=== PATIENT | male | born 1945 | race Caucasian/White ===

== ENCOUNTER 2022-10-20 15:20 | Inpatient (IN) | payer MEDICARE, BC ==
[~2022-10-20] VITALS: Ht 188 cm; Wt 120.4 kg
[~2022-10-20 15:20] MED LIST: ASPI325T6 PO; ASPIRIN E.C. 8181 MG PO; BRILINTA90 MG PO; GLUCOPHAGE500 MG/TAB PO; LIPITOR 40MG TA40 MG PO; LYRICA 100MG C100 M1 PO; NOVOLIN N100 U/ML SQ; NOVOLIN R100 U/ML SQ; PLAVIX 75MG TAB75 MG PO; PRILOSEC 20MG20 MG PO; PRINIVIL10 MG PO; TOPROL XL100 MG PO; ZOCOR 40MG40 MG PO
[2022-10-20 15:44] LABS: BASO % 0.4 % (0.0-2.0); EOS % 0.1 % (0.0-4.0); GRAN # 6.7 K/mm3 (1.4-6.5); GRAN % 69.3 % (42.2-75.2); HEMATOCRIT 43.9 % (42.0-52.0); HEMOGLOBIN 13.8 g/dl (13.5-18.0); LYMPH # 2.1 K/mm3 (1.2-3.4); LYMPH % 22.1 % (20.0-51.0); MEAN CELL VOLUME 89 fl (80.0-100.0); MEAN CORPUSCULAR HEMOGLOBIN 28 pg (27-31); MEAN CORPUSCULAR HGB CONC 31 g/dl (33.0-37.0); MEAN PLATELET VOLUME 10.1 fl (7.4-10.4); MONO # 0.8 K/mm3 (0.1-0.6); MONO % 7.7 % (1.7-9.3); PLATELET COUNT 252 K/mm3 (130-400); RED BLOOD COUNT 4.91 M/mm3 (4.20-5.60)
[2022-10-20 16:00] LABS: ALBUMIN 3.5 gm/dL (3.4-4.8); BILIRUBIN,TOTAL 0.9 mg/dL (0.2-1.2); CALCIUM 9.5 mg/dL (8.4-10.2); CREATININE, serum 0.87 mg/dL (0.72-1.25); POTASSIUM 4.3 mmol/L (3.5-4.5); TOTAL PROTEIN 7.8 gm/dL (6.2-8.1)
[2022-10-20 16:19] LABS: TROPONIN-I 0.013 ng/mL (0.00-0.033); TSH w REFLEX 1.018 uIU/mL (0.350-4.940)
[2022-10-20 16:25] LABS: INR 1.1 (0.8-3.0); PROTHROMBIN TIME 12.1 SECONDS (9.7-12.8)
[2022-10-20 16:28] LABS: PARTIAL THROMBOPLASTIN TIME 36.4 SECONDS (26.0-37.0)
[2022-10-20 16:30] VITALS: BP 113/71; PULSE 101
[2022-10-20 17:00] VITALS: BP 125/78; PULSE 100
[2022-10-20] MEDS ORDERED: BREZTRI AEROS10.7 GM IH (17:45)
[2022-10-20] MEDS ORDERED: PAMELOR75 MG PO (17:46)
[2022-10-20] MEDS ORDERED: MOBIC15 MG PO (17:46)
[2022-10-20] MEDS ORDERED: PROSCAR 5MG5 MG PO (17:47)
[2022-10-20] MEDS ORDERED: PROTONIX 40MG T40 MG PO (17:47)
[2022-10-20] MEDS ORDERED: SINGULAIR 110 MG/TAB PO (17:48)
[2022-10-20] MEDS ORDERED: NEURONTIN300 MG/CAP PO (17:48)
[2022-10-20] MEDS ORDERED: REGLAN 5MG T5 MG/TAB PO (17:49)
[2022-10-20] MEDS ORDERED: FLOMAX 0.40.4 MG/CAP PO (18:00)
[2022-10-20 18:36] LABS: COLLECTION METHOD CLEAN CATCH
[2022-10-20 19:04] LABS: SQUAMOUS EPITHELIAL None Seen /hpf (0-10); URINE BACTERIA None Seen /hpf (NONE SEEN); URINE RBC 0-2 /hpf (0-2)
[2022-10-20 19:12] LABS: URINE APPEARANCE Clear (CLEAR/HAZY); URINE BLOOD Negative (NEGATIVE); URINE COLOR Yellow (YELLOW); URINE GLUCOSE Negative (NEGATIVE); URINE KETONE Negative (NEGATIVE); URINE NITRATE Negative (NEGATIVE); URINE PROTEIN(semi-quant) Negative (NEGATIVE)
[2022-10-20 19:31] VITALS: BP 114/63; BP 133/72; PULSE 59; PULSE 98; TEMP 98.4; TEMP 99.5
[2022-10-20 20:30] VITALS: BP_SYST 127
[2022-10-20 22:27] VITALS: BP 127/68; PULSE 97; TEMP 98.6
--- NOTE | 2022-10-20 23:49 | NUR ---
Admission assessment completed. at the bedside. Pt and family were oriented to the room. Pt is alert and oriented x4. He is unstable on his feet and used a cane to ambulate. Fall precautions initiated. Upon arrival, pt had heparin running at 21.5 ml/hr in the right wrist IV. Cardizem was running in the L hand IV at 10 ml/hr. This was adjusted to 5 ml/hr as ordered. The Hep Xa was rechecked at 2225. Lab called back with the results of 1.19. Per protocol, the heparin was put on hold for two hours and the PTT and Hep Xa will be rechecked at 0110. Pt denies any chest pain or SOB at this time. Will cont to monitor.
[2022-10-21] VITALS (10 sets, daily range): BP systolic 105–158; BP diastolic 53–75; PULSE 96–112; TEMP 98.1–98.7
[2022-10-21 01:58] LABS: PARTIAL THROMBOPLASTIN TIME 97.4 SECONDS (26.0-37.0)
--- NOTE | 2022-10-21 06:38 | NUR ---
Heparin gtt was adjusted at 0250 to 18.5 ml/hr due to Hep Xa recheck results of 0.56.
[2022-10-21 06:57] LABS: BASO # 0.1 K/mm3 (0.0-0.2); BASO % 0.5 % (0.0-2.0); EOS # 0.2 K/mm3 (0.0-0.7); EOS % 1.7 % (0.0-4.0); GRAN # 6.1 K/mm3 (1.4-6.5); GRAN % 61.7 % (42.2-75.2); HEMATOCRIT 41.3 % (42.0-52.0); HEMOGLOBIN 12.8 g/dl (13.5-18.0); LYMPH # 2.8 K/mm3 (1.2-3.4); LYMPH % 28.7 % (20.0-51.0); MEAN CELL VOLUME 91 fl (80.0-100.0); MEAN CORPUSCULAR HEMOGLOBIN 28 pg (27-31); MEAN CORPUSCULAR HGB CONC 31 g/dl (33.0-37.0); MEAN PLATELET VOLUME 10.6 fl (7.4-10.4); MONO # 0.7 K/mm3 (0.1-0.6); MONO % 6.9 % (1.7-9.3); PLATELET COUNT 237 K/mm3 (130-400); RED BLOOD COUNT 4.55 M/mm3 (4.20-5.60); REDCELL DISTRIBUTION WIDTH-CV 15.1 % (11.5-14.5)
[2022-10-21 07:14] LABS: CALCIUM 9.1 mg/dL (8.4-10.2); CREATININE, serum 0.73 mg/dL (0.72-1.25); MAGNESIUM 1.7 mg/dL (1.6-2.6); POTASSIUM 3.9 mmol/L (3.5-4.5)
--- NOTE | 2022-10-21 11:13 | NUR ---
SW met with patient to complete intake. Patient states he lives in [facility]. with Meagan Lazaro [phone]. Patient states he does utilize a walker and a cane for mobility, independent with ADL's and does not utilize home health services at this time. PCP is Dr. Manjarrez of [facility], and [facility] for pharmacy needs. DPOA of HC is spouse. Patient plans to return to his home upon DC. SW will continue to follow. DC plan: home
[2022-10-22] VITALS (13 sets, daily range): BP systolic 119–158; BP diastolic 57–93; PULSE 82–121; TEMP 97.9–98.7
--- NOTE | 2022-10-22 03:12 | NUR ---
Shift assessment completed. Pt currently has heparin running at 17 ml/hr and cardizem running at 5 ml/hr. He continues to be in a-fib. He denies any SOB or chest pain. Most recent Hep Xa at 2340 was in therapeutic range. Next recheck at 0540. Pt is comfortable and denies other needs at this time. Call light left within reach and fall precautions in place.
[2022-10-22 06:45] LABS: BASO # 0.1 K/mm3 (0.0-0.2); BASO % 0.7 % (0.0-2.0); EOS # 0.6 K/mm3 (0.0-0.7); EOS % 6.3 % (0.0-4.0); GRAN # 5.7 K/mm3 (1.4-6.5); GRAN % 62.9 % (42.2-75.2); HEMATOCRIT 41.4 % (42.0-52.0); HEMOGLOBIN 13.1 g/dl (13.5-18.0); LYMPH # 1.9 K/mm3 (1.2-3.4); LYMPH % 21.1 % (20.0-51.0); MEAN CELL VOLUME 90 fl (80.0-100.0); MEAN CORPUSCULAR HEMOGLOBIN 29 pg (27-31); MEAN CORPUSCULAR HGB CONC 32 g/dl (33.0-37.0); MEAN PLATELET VOLUME 10.5 fl (7.4-10.4); MONO # 0.8 K/mm3 (0.1-0.6); MONO % 8.4 % (1.7-9.3); PLATELET COUNT 220 K/mm3 (130-400); REDCELL DISTRIBUTION WIDTH-CV 15.3 % (11.5-14.5)
[2022-10-22 07:02] LABS: CALCIUM 9.1 mg/dL (8.4-10.2); CREATININE, serum 0.81 mg/dL (0.72-1.25); POTASSIUM 4.2 mmol/L (3.5-4.5)
--- NOTE | 2022-10-22 23:50 | NUR ---
ASSESSMENT COMPLETE FOR DESIGN CHIEF. PT HAS HAD A PRETTY UNEVENTFUL NIGHT THUS FAR. PT DENIED GENERAL PAIN, CHEST PAIN, PALPITATIONS, SOB, N,V,D OR DIZZINESS. FALL PRECAUTIONS IN PLACE. BED ALARM ON. CALL LIGHT WITHIN REACH.
[2022-10-23] VITALS (16 sets, daily range): BP systolic 109–159; BP diastolic 53–85; PULSE 85–125; TEMP 97.9–98.6
--- NOTE | 2022-10-23 06:35 | NUR ---
NIGHTSHIFT: THIS MORNING, PT CALLED OUT STATING HIS BLOOD GLUCOSE WAS OVER 3OO. I CHECKED PT'S BLOOD GLUCOSE WITH THE HOSPITAL'S MONITOR AND HIS BLOOD GLUCOSE WAS 296. 8 UNITS OF NOVOLOG GIVEN. INFORMATION PASSED ON TO DAYSHIFT RNS WITH RECOMMENDATIONS TO SEE IF PT'S INSULIN CAN BE INCREASED AND HIS GLUCOSE MONITORING CHANGED TO Q4HRS. CALL LIGHT WITHIN REACH.
[2022-10-23 08:00] LABS: BASO % 0.5 % (0.0-2.0); EOS % 0.1 % (0.0-4.0); GRAN # 6.1 K/mm3 (1.4-6.5); HEMATOCRIT 42.9 % (42.0-52.0); HEMOGLOBIN 13.5 g/dl (13.5-18.0); LYMPH # 1.4 K/mm3 (1.2-3.4); LYMPH % 17.4 % (20.0-51.0); MEAN CELL VOLUME 89 fl (80.0-100.0); MEAN CORPUSCULAR HEMOGLOBIN 28 pg (27-31); MEAN CORPUSCULAR HGB CONC 32 g/dl (33.0-37.0); MEAN PLATELET VOLUME 10.2 fl (7.4-10.4); MONO # 0.6 K/mm3 (0.1-0.6); MONO % 7.6 % (1.7-9.3); PLATELET COUNT 225 K/mm3 (130-400); RED BLOOD COUNT 4.83 M/mm3 (4.20-5.60); REDCELL DISTRIBUTION WIDTH-CV 14.9 % (11.5-14.5)
--- NOTE | 2022-10-23 08:06 | NUR ---
UPON ENTERING ROOM PATIENT WAS SITTING DOWN ON BED LOOKING AT THE WINDOW.PATIENT ALERT X4. PATIENT WAS PLEASANT AND REMAINS NPO AT THIS TIME. BED AT LOWEST POSITION AND CALL LIGHT WITHIN REACH.
[2022-10-23 08:12] LABS: CALCIUM 9.2 mg/dL (8.4-10.2); CREATININE, serum 0.86 mg/dL (0.72-1.25)
[2022-10-23 10:12] LABS: INR 1.2 (0.8-3.0); PROTHROMBIN TIME 13.3 SECONDS (9.7-12.8)
[2022-10-23] MEDS ORDERED: PEPCID 20MG TAB20 MG PO (12:33)
[2022-10-23] MEDS ORDERED: LOPRESSOR100 MG PO (12:40)
--- NOTE | 2022-10-23 20:40 | NUR ---
PACO ALVARADO, ASA, AND ELIQUIS ORDERED, PATIENT OOZING FROM LOOP RECORDER SITE, PRESSURE DRESSING APPLIED BY DAYSHIFT, NO NEW BLEEDING. ORDER TO HOLD ASA RECEIVED
[2022-10-23 23:44] LABS: ARTERIAL BLD GAS O2 SATURATION 96.8 % (92-100); ARTERIAL BLD GAS TCO2 CT 29.7; ARTERIAL BLOOD GAS BASE EXCESS 0.8 (-2-2); ARTERIAL BLOOD GAS PCO2 55.6 mmHg (35-45); ARTERIAL BLOOD GAS PO2 99.7 mmHg (80-100); ARTERIAL BLOOD GAS pH 7.32 (7.35-7.45)
[2022-10-24] VITALS (11 sets, daily range): BP systolic 115–139; BP diastolic 69–92; PULSE 95–103; TEMP 98–98.7
[2022-10-24 02:28] LABS: ARTERIAL BLD GAS O2 SATURATION 96.2 % (92-100); ARTERIAL BLD GAS TCO2 CT 27.2; ARTERIAL BLOOD GAS BASE EXCESS -1.1 (-2-2); ARTERIAL BLOOD GAS HCO3 25.6 meq/L (22-26); ARTERIAL BLOOD GAS PCO2 50.2 mmHg (35-45); ARTERIAL BLOOD GAS pH 7.33 (7.35-7.45)
--- NOTE | 2022-10-24 02:41 | NUR ---
0225 ABG'S CALLED TO CIRILO AMEZCUA APRN, PLAN TO DO BREATHING TREATMENT THEN RESUME BIPAP
--- NOTE | 2022-10-24 02:50 | NUR ---
PATIENT COUGHING, REQUESTING SOMETHING FOR COUGH BEFORE HE GOES BACK ON BIPAP. CIRILO Dooley APRN NOTIFIED, ORDERS RECEIVED.
--- NOTE | 2022-10-24 02:51 | NUR ---
ON 10/23/2022 AT APPROX 2230 PATIENT WAS FOUND TO BE SHORT OF BREATH WITH o2 SATS IN 70'S ON ROOM AIR. O2 IMMEDIATELY PLACED ON 10L PER OXYMASK WITH o2 LEVELS RAISING TO LOW 90'S, PATIENT IS SOA, LUNG SOUNDS ARE GREATLY DIMININSHED WITH EXP WHEEZES BILATERALLY. SKIN IS ADELINE WHICH IS A CHANGE FROM PRIOR ASSESSMENT PATIENT STATES I CANNOT GET AIR IN. DENIES CHEST PAIN. CHEST INCISION IS STABLE, NO SUBQ EMPHYSEMA PRESENT. CHARGE NURSE IS NOTIFIED, IS A SABI AMEZCUA, AND RESPIRATORY THERAPY. A BREATHING TREATMENT WAS ADMINISTERED, A CHEST CTA COMPLETE, AND PATIENT WAS PLACED ON BIPAP AFTER ABGS WERE OBTAINED AND RESULTS WERE CALLED TO Ryan AMEZCUA APRN. AFTER CT PATIENT REPORTS THAT SHORTNESS OF AIR STARTED SHORTLY AFTER HE WAS GIVEN SKIN BREAKDOWN WITH ANTIBACTERIAL WIPES, AND PATIENT WAS THEN ITCHING WITH HIVE LIKE AREA ON RIGHT KNEE. A SEVEN KEPMN WAS NOTIFIED AND SOLUMEDROL AND BENADRYL WAS ORDERED AND ADMINISTERED. TELE REMAINS S
--- NOTE | 2022-10-24 03:48 | NUR ---
CONTACTED DR. CASTELAN ON 11/03/22 AT 2100 TO VERIFY THAT HE INDEED WANTS HIM ON bRILINTA, ELIQUIS AND ASPIRIN. ORDER TO HOLD ASPIRIN RECEIVED. ALSO NOTIFIED DR. CASTELAN THAT LOOP RECORDER INSERTION SITE HAD BEEN OOZING, BUT THAT DAY SHIFT HAD PLACED A PRESSURE DRESSING ON IT AND IT REMAINS D/I
[2022-10-24 07:14] LABS: HEMATOCRIT 47.9 % (42.0-52.0); HEMOGLOBIN 14.8 g/dl (13.5-18.0); MEAN CELL VOLUME 90 fl (80.0-100.0); MEAN CORPUSCULAR HEMOGLOBIN 28 pg (27-31); MEAN CORPUSCULAR HGB CONC 31 g/dl (33.0-37.0); MEAN PLATELET VOLUME 10.4 fl (7.4-10.4); PLATELET COUNT 222 K/mm3 (130-400); RED BLOOD COUNT 5.31 M/mm3 (4.20-5.60); REDCELL DISTRIBUTION WIDTH-CV 14.9 % (11.5-14.5)
[2022-10-24 07:26] LABS: CALCIUM 9.2 mg/dL (8.4-10.2); CREATININE, serum 0.85 mg/dL (0.72-1.25); POTASSIUM 5.4 mmol/L (3.5-4.5)
--- NOTE | 2022-10-24 07:28 | NUR ---
WORE BIPAP LAST NOC, ON STANDBY NOW, PATIENT ON 4LPM SPO2 93%.
[2022-10-24] MEDS ORDERED: NOVOLIN R100 U/ML SQ ×2 (07:44)
[2022-10-24 07:46] LABS: BAND 7 % (0-10); LYMPHOCYTE 4 % (20.0-51.0); NEUTROPHILS 83 % (42.0-75.2); PLATELET ESTIMATE NORMAL (NORMAL)
--- NOTE | 2022-10-24 07:46 | NUR ---
AT 0600MTHIS AM THIS RN WENT IN TO ASSESS PATIENT AND FOUND THAT PATIENT WAS CONFUSED AND DIFFICULT TO REORITENT. DR. HERNANDEZ WAS NOTIFIED AND STAT CT OF THE HEAD WAS ORDERED. PATIENT WAS TAKEN FOR CT AND WHILE ENROUTE HE BECAME MORE ORIENTED, STATED HE WAS JUST IN A DREAM AND THAT NOW HE IS AWAKE. SPOKE WITH PATIENTS WHO SAID IT WAS SOMEWHAT NORMAL FOR HIM TO WAKE UP DISORIENTED, BUT THAT IT SEEMED WORSE TODAY. NIH NEGATIVE. bs 280+.
--- NOTE | 2022-10-24 09:07 | NUR ---
Held Sotalol, notified Dr. Meadows of QTc 566. VO to give Sotalol at this time.
--- NOTE | 2022-10-24 11:40 | NUR ---
Exhibit Carpenter met with patient and his spouse at bedside to review discharge plan. SW reviewed OP PT vs Home Health. Patient is going to consider both options but advised he has done OP at [facility] before. Discharge Plan: Home, OP PT vs HH
--- NOTE | 2022-10-24 11:53 | NUR ---
Pt daughter, , called with questions about hyperglycemia tx. Is informed of current insulin orders and changes. Requests to speak with JAMIE. Eileen notified. Daughter given phone number.
--- NOTE | 2022-10-24 12:15 | NUR ---
Windows Software Developer spoke with patient's daughter, (ph#[phone]) who had several questions about patient's plan of care. SW updated Hospitalist who will call patient.
--- NOTE | 2022-10-24 19:45 | NUR ---
Shift summary: Pt A&O, VSS. Tachycardia decreases throughout shift, HR upper 90's. Continues to require 3.5L O2 via NC, sats maintain low 90's. Denies SOB. No redness/hives noted on skin. All signs of reaction have dissipated. Abx changed to PO cleocin, no reactions noted. Blood glucose has been elevated, 300's. Dr. Thompson aware, adjustments made to scheduled insulin, SSI and long acting. Pt is educated about using conservative insulin doses and the effects of steroids on blood sugar. ST cognitive eval complete. Per recs, pt would benefit from continued OP ST. Pt denies needs at this time.
--- NOTE | 2022-10-24 22:00 | NUR ---
Patient sitting on the side of the bed. Denies any pain at this time. IV in left hand has some dried drainage, flushes sluggishly, and stings when flushing. D/C the IV in left hand. IV in right hand appears clean, dry, intact, and flushes with no complications. Assessment complete. Denies any other needs at this time. Call light and personal items in reach. Bed in low postion, bed alarm on, and non-slip footwear in place.
--- NOTE | 2022-10-24 22:45 | NUR ---
Patient arrived on unit at 2215. Patient has her bag, along with her clothes, a bracelet, and some of her home oxygen tubing which is in her bag. She has NS running at 75mL/hr. 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 Denies any pain at this time. IV site in right AC appears clean, dry, intact, and infusing with no complications. Assessment complete at this time. Assissted patient to the bathroom and back to bed. Mcdonald, applesauce, and pudding provided. Denies any other needs at this time. Oriented to room, bathroom, call light, and dietary phone. No questions at this time.
[2022-10-25] VITALS (7 sets, daily range): BP systolic 110–137; BP diastolic 55–85; PULSE 86–92; TEMP 97.3–97.9
--- NOTE | 2022-10-25 06:00 | NUR ---
Patient resting in bed. Denies any pain at this time. Patient monitored throughout the night by this nurse. Denies any other needs. Call light and personal items in reach. Bed in low position, bed alarm on, and non-slip footwear in place.
[2022-10-25] MEDS ORDERED: CLEOCIN HCL300 MG PO (07:42)
[2022-10-25] MEDS ORDERED: ELIQUIS 5MG PO (07:42)
[2022-10-25] MEDS ORDERED: BETAPACE 80MG80 MG PO (07:43)
[2022-10-25 08:34] LABS: BASO % 0.1 % (0.0-2.0); GRAN # 8.3 K/mm3 (1.4-6.5); GRAN % 78.8 % (42.2-75.2); HEMATOCRIT 40.6 % (42.0-52.0); HEMOGLOBIN 12.9 g/dl (13.5-18.0); LYMPH # 1.5 K/mm3 (1.2-3.4); LYMPH % 14.5 % (20.0-51.0); MEAN CELL VOLUME 87 fl (80.0-100.0); MEAN CORPUSCULAR HEMOGLOBIN 28 pg (27-31); MEAN CORPUSCULAR HGB CONC 32 g/dl (33.0-37.0); MEAN PLATELET VOLUME 10.1 fl (7.4-10.4); MONO # 0.7 K/mm3 (0.1-0.6); MONO % 6.1 % (1.7-9.3); PLATELET COUNT 235 K/mm3 (130-400); RED BLOOD COUNT 4.65 M/mm3 (4.20-5.60); REDCELL DISTRIBUTION WIDTH-CV 14.7 % (11.5-14.5)
[2022-10-25 08:47] LABS: CALCIUM 8.7 mg/dL (8.4-10.2); CREATININE, serum 0.88 mg/dL (0.72-1.25); POTASSIUM 4.4 mmol/L (3.5-4.5)
--- NOTE | 2022-10-25 09:00 | NUR ---
PATIENT DID NOT QUALIFY FOR HOME O2. PATIENT >91% DURING WALK.
[2022-10-25] MEDS ORDERED: MEDROL 4MG DOSPA4 MG PO (09:24)
--- NOTE | 2022-10-25 09:27 | NUR ---
Paged Dr. Meadows re: QTc 575.
--- NOTE | 2022-10-25 09:31 | NUR ---
VO Dr. Meadows, give Sotalol per order.
--- NOTE | 2022-10-25 12:35 | NUR ---
Discharge instructions reviewed with patient and his spouse- both verbalize understanding. INT to RH d/c'd with cath tip intact. Tele d/c'd. Dressing to chest removed- incision site slowly bleeding. 2x2 gauze placed and secured with foam tape (pressure dressing) and site stopped bleeding. ROBIN Caba notified.
--- NOTE | 2022-10-25 12:35 | NUR ---
Reassess dressing to loop recorder site mid chest. Remains intact, no drainage noted. Instruct pt and to remove slowly prior to shower. May wet dressing in order to remove without removing scab.
--- NOTE | 2022-10-25 15:54 | NUR ---
Java Manager spoke with Hospitalist who advised patient is ready for discharge today and would like Home Health. JAMIE met with patient and provided [email or web address] list of HH agencies. Patient selected [facility]. JAMIE then reviewed IM with patient who verbalized understanding and provided his signature. JAMIE placed form in chart and provided copy to patient. JAMIE faxed referral to [facility], then received a voicemail message from Roel at [facility] that she can accept patient. Discharge Plan: Home with HH today
== END 2022-10-25 12:35 | disposition home health service (06) | DRG 260 ==
LOC: COL.ER 15:20 → MEDICAL 16:09
PROVIDERS: Emergency Medicine; Hospitalist; Internal Medicine Cardiovascular Disease; Nurse Practitioner Family; Physician Assistant; ADMIT Internal Medicine
PROC: 0JH632Z Insertion of Monitoring Device into Chest Subcutaneous Tissue and Fascia, Percutaneous Approach (ICD-10-PCS; principal; 2022-10-20)
PROC: 5A2204Z Restoration of Cardiac Rhythm, Single (ICD-10-PCS; 2022-10-20)
DX: I48.91 Unspecified atrial fibrillation (principal); J96.01 Acute respiratory failure with hypoxia; Z79.01 Long term (current) use of anticoagulants; T78.40XA Allergy, unspecified, initial encounter; E83.00 Disorder of copper metabolism, unspecified; E66.9 Obesity, unspecified; R91.1 Solitary pulmonary nodule; I25.10 Atherosclerotic heart disease of native coronary artery without angina pectoris; Z95.5 Presence of coronary angioplasty implant and graft; E78.5 Hyperlipidemia, unspecified; I10 Essential (primary) hypertension; E11.40 Type 2 diabetes mellitus with diabetic neuropathy, unspecified; Z79.84 Long term (current) use of oral hypoglycemic drugs; K21.9 Gastro-esophageal reflux disease without esophagitis; N40.0 Benign prostatic hyperplasia without lower urinary tract symptoms
CPT/HCPCS: J1200; J1644; J1815; J2704; J2930; Q9967